=== PATIENT | male | born 1980 | race Caucasian/White ===

== ENCOUNTER 2021-08-28 00:13 | Emergency (ER) | payer BC ==
[2021-08-28] MEDS ORDERED: MORPHINE 4 MG/ML SYR ONE (00:57)
[2021-08-28] MEDS ORDERED: ONDANSETRON 4 MG/2 ML VIAL ONE (00:57)
[2021-08-28] MEDS ORDERED: NA CHLORIDE 0.9% 1,000 ML ONE ×2 (00:58→04:48)
[2021-08-28 01:29] LABS: Urine Blood Trace-intact (Negative); Urine Glucose 2+ (Negative); Urine Protein 2+ (Negative)
[2021-08-28 01:33] LABS: Protime INR 0.95
[2021-08-28 01:41] LABS: Absolute Lymphocytes (CBC) 3.6 K/uL (0.7-4.9); Basophils % 0.5 % (0-1.3); Lymphocytes % 24.5 % (15.3-44.8); MPV 8.3 fL (7.6-11.3); RBC Red Blood Cell Count 5.19 M/uL (4.33-5.43)
[2021-08-28 01:59] LABS: Barbiturates NEGATIVE (NEGATIVE); Benzodiazepines NEGATIVE (NEGATIVE); Cocaine NEGATIVE (NEGATIVE); METHAMPHETAM NEGATIVE (NEGATIVE); Methadone NEGATIVE (NEGATIVE); Opiates POSITIVE (NEGATIVE); Phencyclidine NEGATIVE (NEGATIVE); THC Cannibis POSITIVE (NEGATIVE)
[2021-08-28 02:30] LABS: ALT/SGPT 29 U/L (12-78); AST/SGOT 15 U/L (15-37); Albumin 3.6 g/dL (3.4-5.0); Alkaline Phosphatase 60 U/L (45-117); BUN Blood Urea Nitrogen 18 mg/dL (7-18); Bicarbonate 25 mmol/L (21-32); Bilirubin Direct < 0.1 mg/dL (0-0.2); Bilirubin Total 0.2 mg/dL (0.2-1.0); Glucose Level 282 mg/dL (74-106); Magnesium 2.2 mg/dL (1.8-2.4); NT PRO-BNP 113 pg/mL (<125); Potassium 4.2 mmol/L (3.5-5.1); Protein, Total 7.3 g/dL (6.4-8.2); Sodium Level 140 mmol/L (136-145); Troponin (Emerg Dept Use Only) < 0.02 ng/mL (0.0-0.045)
[2021-08-28] MEDS ORDERED: HYDROMORPHONE HCL 1 MG/ML INJ ONE (04:48)
--- NOTE | 2021-08-28 05:16 | EDPHYS ---
Physician Documentation [facility] Name: Dell Magaña Age: 41 yrs Sex: Male : 1980 Arrival Date: 08/28/2021 Time: 00:22 Bed 5 Private MD: ED Physician Kev Mohr HPI: 08/28 00:35 This 41 yrs old Male presents to ER via EMS with complaints of Syncope. mh7 00:35 The patient has experienced syncope, collapsed. Onset: The symptoms/episode mh7 began/occurred just prior to arrival, today. Duration: This was a single episode, that lasted an unknown period of time. Context: the episode(s) was witnessed, by family, occurred at home, occurred while the patient was sitting, Just prior to the episode the patient experienced headache, nausea, vomiting. Associated injury: The patient did not suffer any apparent associated injury. Associated signs and symptoms: Pertinent negatives: abdominal pain, agitation, ataxia, blurred vision, chest pain, combativeness, confusion, diaphoresis, diarrhea, dizziness, lightheadedness, numbness, palpitations, seizure, shortness of breath, tingling, vertigo, weakness. Current symptoms: headache, that is moderate. Historical: - Allergies: 00:34 GABAPENTIN; tw5 - Home Meds: 00:34 hydrocodone-acetaminophen 10-325 mg oral tab [Active]; tw5 - PMHx: 00:34 diabetes mellitus; tw5 - PSHx: 00:34 laminectomy; tw5 - Immunization history:: Client reports having NOT received the Covid vaccine. - Social history:: Smoking status: Patient reports the use of cigarette tobacco products, smokes two packs cigarettes per day. Patient uses street drugs, marijuana. ROS: 00:35 Constitutional: Negative for fever, chills, and weight loss, Eyes: Negative for injury, mh7 pain, redness, and discharge, ENT: Negative for injury, pain, and discharge, Neck: Negative for injury, pain, and swelling, Cardiovascular: Negative for chest pain, palpitations, and edema, Respiratory: Negative for shortness of breath, cough, wheezing, and pleuritic chest pain, Back: Negative for injury and pain, : Negative for injury, bleeding, discharge, and swelling, MS/Extremity: Negative for injury and deformity, Skin: Negative for injury, rash, and discoloration, Psych: Negative for depression, anxiety, suicide ideation, homicidal ideation, and hallucinations, Allergy/Immunology: Negative for hives, rash, and allergies, Endocrine: Negative for neck swelling, polydipsia, polyuria, polyphagia, and marked weight changes, Hematologic/Lymphatic: Negative for swollen nodes, abnormal bleeding, and unusual bruising. Exam: 00:35 Eyes: Pupils equal round and reactive to light, extra-ocular motions intact. Lids and mh7 lashes normal. Conjunctiva and sclera are non-icteric and not injected. Cornea within normal limits. Periorbital areas with no swelling, redness, or edema. Neck: Trachea midline, no thyromegaly or masses palpated, and no cervical lymphadenopathy. Supple, full range of motion without nuchal rigidity, or vertebral point tenderness. No Meningismus. Chest/axilla: Normal chest wall appearance and motion. Nontender with no deformity. No lesions are appreciated. 00:35 Respiratory: Lungs have equal breath sounds bilaterally, clear to auscultation and percussion. No rales, rhonchi or wheezes noted. No increased work of breathing, no retractions or nasal flaring. Abdomen/GI: Soft, non-tender, with normal bowel sounds. No distension or tympany. No guarding or rebound. No evidence of tenderness throughout. Back: No spinal tenderness. No costovertebral tenderness. Full range of motion. Skin: Warm, dry with normal turgor. Normal color with no rashes, no lesions, and no evidence of cellulitis. MS/ Extremity: Pulses equal, no cyanosis. Neurovascular intact. Full, normal range of motion. 00:35 Psych: Awake, alert, with orientation to person, place and time. Behavior, mood, and affect are within normal limits. 00:35 Constitutional: The patient appears in no acute distress, alert, awake, uncomfortable. 00:35 Head/face: Noted is tenderness, that is moderate, of the Posterior scalp. 00:35 Cardiovascular: Rate: bradycardic, Rhythm: regular, Pulses: no pulse deficits are appreciated, Heart sounds: normal, normal S1and S2, Edema: is not appreciated, JVD: is not appreciated. 00:35 Neuro: Orientation: is normal, Mentation: is normal, Memory: is normal, Cranial nerves: grossly normal, Cerebellar function: is grossly normal, Motor: is normal, Sensation: is normal, Gait: not tested. seizure activity, is not displayed by the patient, Abnormal movements: there are no abnormal movements. Vital Signs: 00:22 BP 159 / 87; Pulse 50; Resp 18 S; Pulse Ox 99% on R/A; cc4 00:23 BP 159 / 87; Pulse 47; Resp 12; Temp 98.5; Pulse Ox 100% on R/A; Weight 86.18 kg; tw5 Height 5 ft. 8 in. (172.72 cm); Pain 10/10; 00:30 BP 156 / 90; Pulse 69; Resp 20 S; Pulse Ox 99% on R/A; cc4 01:08 BP 157 / 77; Pulse 47; Resp 14; Pulse Ox 99% on R/A; Pain 10/10; tw5 01:45 BP 131 / 70; Pulse 48; Resp 20 S; Pulse Ox 99% on R/A; cc4 02:16 BP 135 / 68; Pulse 70; Resp 18; Pulse Ox 100% on R/A; Pain 8/10; tw5 02:17 Pain 8/10; tw5 05:30 BP 169 / 83; Pulse 47; Resp 18 S; Temp 98.1; Pulse Ox 99% on R/A; cc4 00:23 Body Mass Index 28.89 (86.18 kg, 172.72 cm) tw5 MDM: 05:10 Differential Diagnosis: cardiac arrhythmia, cerebrovascular accident, drug effect, mh7 emotional response, idiopathic syncope, pseudo seizure, seizure, transient ischemic attack, vasovagal episode. Data reviewed: vital signs, nurses notes, EMS record, old medical records, lab test result(s), cardiac enzymes, CBC, drug level(s), electrolytes, urinalysis, urine drug screen. Data interpreted: Pulse oximetry: on room air is 100 %. Interpretation: normal. Counseling: I had a detailed discussion with the patient and/or guardian regarding: the historical points, exam findings, and any diagnostic results supporting the discharge/admit diagnosis, the presence of at least one elevated blood pressure reading (>120/80) during this emergency department visit, lab results, radiology results, to return to the emergency department if symptoms worsen or persist or if there are any questions or concerns that arise at home. Response to treatment: the patient's symptoms have resolved after treatment, the patient's blood pressure is in an acceptable range, mental status has returned to baseline, the patient no longer shows bradycardia, the patient is not short of breath, the patient is not tachycardic, the patient's pain is gone, the patient's temperature has normalized, the patient is now symptom free, patient is well hydrated. Refusal of service: The patient/guardian displays adequate decision making capability and despite a detailed discussion of alternatives, benefits, risks, and consequences refuses: Admission to the hospital for further work-up and treatment, Lumbar Puncture procedure. ED course: Well-appearing, no acute distress, vital signs stable, no focal neurological deficit. No headache, nausea, vomiting, dizziness, chest pain, shortness of breath, or other complaints. Patient family are at bedside was with him at home this morning states that he may have passed out for 1 to 2 seconds at most. Discussed all test results and findings with the patient and discussed possible admission. Patient declined admission and wants to go home. He states he will follow-up with his doctors. Advised patient return to ED if worsening of symptoms or other urgent concerns.. 05:15 Patient medically screened. [facility] 05:17 ED course: Additionally patient reports that he coughed hard then felt the headache.. [facility] 08/28 00:31 Order name: Basic Metabolic Panel [facility] 08/28 00:31 Order name: CBC with Diff; Complete Time: 01:52 [facility] 08/28 00:31 Order name: LFT's; Complete Time: 02:34 [facility] 08/28 00:31 Order name: Magnesium; Complete Time: 02:34 [facility] 08/28 00:31 Order name: NT PRO-BNP; Complete Time: 02:34 [facility] 08/28 00:31 Order name: PT-INR; Complete Time: 01:38 [facility] 08/28 00:31 Order name: Troponin (emerg Dept Use Only); Complete Time: 02:34 [facility] 08/28 00:31 Order name: UDS; Complete Time: 02:08 [facility] 08/28 00:31 Order name: ETOH Level; Complete Time: 01:52 [facility] 08/28 00:32 Order name: Basic Metabolic Panel; Complete Time: 02:34 [facility] [place] 08/28 01:27 Order name: SARS-COV-2 RT PCR; Complete Time: 02:34 [facility] 08/28 01:28 Order name: Urine Dipstick-Ancillary; Complete Time: 01:38 [facility] [place] 08/28 03:33 Order name: Troponin (emerg Dept Use Only) [facility] 08/28 00:31 Order name: XRAY Chest (1 view) [facility] 08/28 00:31 Order name: EKG; Complete Time: 00:32 [facility] 08/28 00:31 Order name: Cardiac monitoring; Complete Time: 00:32 [facility] 08/28 00:31 Order name: EKG - Nurse/Tech; Complete Time: 00:32 [facility] 08/28 00:31 Order name: IV Saline Lock; Complete Time: 00:33 [facility] 08/28 00:31 Order name: Labs collected and sent; Complete Time: 00:33 [facility] 08/28 00:31 Order name: O2 Per Protocol; Complete Time: 00:33 [facility] 08/28 00:31 Order name: O2 Sat Monitoring; Complete Time: 00:33 [facility] 08/28 00:31 Order name: CT Head Brain wo Cont [facility] 08/28 03:02 Order name: CT Head Angio [facility] 08/28 05:27 Order name: Glucose, Ancillary Testing [facility] 08/28 00:31 Order name: Urine Dipstick-Ancillary (obtain specimen); Complete Time: 01:11 7 Administered Medications: 01:11 Drug: NS 0.9% 1000 ml Route: IV; Rate: 1000 ml; Site: right antecubital; tw5 02:00 Follow up: IV Status: Completed infusion; IV Intake: 1000ml cc4 02:17 Follow up: Response: No adverse reaction; IV Status: Completed infusion tw5 01:14 Drug: morphine 4 mg Route: IVP; Site: right antecubital; tw5 01:30 Follow up: Response: No adverse reaction; Pain is decreased cc4 02:17 Follow up: Pain 8/10 Adult; Response: No adverse reaction; Pain is decreased; RASS: tw5 Drowsy (-1) 01:14 Drug: Zofran (Ondansetron) 4 mg Route: IVP; Site: right antecubital; tw5 02:17 Follow up: Response: No adverse reaction tw5 04:55 Drug: NS 0.9% 1000 ml Route: IV; Rate: 1000 ml; Site: right antecubital; cc4 05:30 Follow up: IV Status: Completed infusion; IV Intake: 1000ml cc4 04:55 Drug: Dilaudid (HYDROmorphone) 1 mg Route: IVP; Site: right antecubital; cc4 05:13 Follow up: Response: No adverse reaction; Pain is decreased cc4 Point of Care Testing: Blood Glucose: 05:13 Blood Glucose: 237 mg/dL; cc4 Ranges: Critical Glucose Levels:Adult <50 mg/dl or >400 mg/dl <40 mg/dl or >180 mg/dl Disposition Summary: 08/28/21 05:15 Discharge Ordered Location: Home [facility] Problem: new [facility] Symptoms: have improved [facility] Condition: Stable [facility] Diagnosis - Headache [facility] - Syncope [facility] - Type 2 diabetes mellitus with hyperglycemia [facility] Followup: [facility] - With: Private Physician - When: 1 - 2 days - Reason: Worsening of condition, Recheck today's complaints, Continuance of care, Re-evaluation by your physician Followup: [facility] - With: Nathan Enriquez MD - When: 1 - 2 days - Reason: Worsening of condition, Recheck today's complaints Followup: [facility] - With: Ash Fuentes MD - When: 1 - 2 days - Reason: Worsening of condition, Recheck today's complaints Discharge Instructions: - Discharge Summary Sheet [facility] - General Headache Without Cause 7 - Syncope, [id number] [facility] - Diabetes Mellitus and Nutrition, Adult [facility] - Hyperglycemia, [id number] [facility] Forms: - Medication Reconciliation Form [facility] - Thank You Letter [facility] - Antibiotic Education [facility] - Prescription Opioid Use [facility] Prescriptions: - Metformin 500 mg Oral Tablet - take 1 tablet by ORAL route 2 times per day . Then take 1 tablet with morning [facility] meals AND evening meals; 30 tablet; Refills: 0, Product Selection Permitted Signatures: Dispatcher [employer] Kev Sanderson MD MD [facility] Roselia Milian RN RN cc4 Adelaide Beauchamp 5 Corrections: (The following items were deleted from the chart) 01:27 00:33 CORONAVIRUS+ ordered. EDMS EDMS
--- NOTE | 2021-08-28 05:16 | ER ---
Nurse's Notes [facility] Name: Dell Magaña Age: 41 yrs Sex: Male : 1980 Arrival Date: 08/28/2021 Time: 00:22 Bed 5 Private MD: Diagnosis: Headache;Syncope;Type 2 diabetes mellitus with hyperglycemia Presentation: 08/28 00:23 Chief complaint: EMS states: He states he is having the worst headache of his life, and tw5 he passed out while sitting in his chair. He is also bradycardic and is blood sugar was 236. Coronavirus screen: Vaccine status: Patient reports being unvaccinated. Ebola Screen: Patient negative for fever greater than or equal to 101.5 degrees Fahrenheit, and additional compatible Ebola Virus Disease symptoms Patient denies exposure to infectious person. Patient denies travel to an Ebola-affected area in the 21 days before illness onset. Initial Sepsis Screen: Does the patient meet any 2 criteria? No. Patient's initial sepsis screen is negative. Does the patient have a suspected source of infection? No. Patient's initial sepsis screen is negative. Risk Assessment: Do you want to hurt yourself or someone else? Patient reports no desire to harm self or others. Onset of symptoms was August 27, 2021 at 22:00. 00:23 Method Of Arrival: EMS: [facility] tw5 00:23 Acuity: SANGEETA 2 tw5 Triage Assessment: 00:35 General: Appears uncomfortable, Behavior is cooperative, restless. Neuro: Reports tw5 photophobia a syncopal episode weakness. Historical: - Allergies: 00:34 GABAPENTIN; tw5 - Home Meds: 00:34 hydrocodone-acetaminophen 10-325 mg oral tab [Active]; tw5 - PMHx: 00:34 diabetes mellitus; tw5 - PSHx: 00:34 laminectomy; tw5 - Immunization history:: Client reports having NOT received the Covid vaccine. - Social history:: Smoking status: Patient reports the use of cigarette tobacco products, smokes two packs cigarettes per day. Patient uses street drugs, marijuana. Screenin:33 Abuse screen: Denies threats or abuse. Denies injuries from another. Nutritional tw5 screening: No deficits noted. Tuberculosis screening: Fall Risk No fall in past 12 months (0 pts). Secondary diagnosis (15 points) IV access (20 points). Ambulatory Aid- None/Bed Rest/Nurse Assist (0 pts). Gait- Weak (10 pts.). Mental Status-. Assessment: 00:34 Pain: Complains of pain in Headache Pain currently is 10 out of 10 on a pain scale. tw5 Neuro: Level of Consciousness is awake, alert, obeys commands, Oriented to person, place, time, situation. Cardiovascular: Rhythm is sinus bradycardia. 01:00 Reassessment: Patient appears in no apparent distress at this time. Playful; medicated cc4 as ordered; voices no complaints. 01:08 General: Reports " It feels like I have an ice pike going through my head and into my tw5 back". Pain: Noted to be grimacing, moaning. Respiratory: Airway is patent Trachea midline Respiratory effort is even, unlabored. : Urine is clear. 02:16 General: Patient was seen sleeping peacefully. Upon arousal patient states that his tw5 pain is 8/10. 04:55 Reassessment: Patient appears in no apparent distress at this time. Reports headache cc4 has decreased to 7/10 on pain scale Patient states feeling better. NS 1000 ml hung to right AC saline lock with Dilaudid 1 mg given slow IVP; sinus bradycardia with no ventricular ectopy noted; remains \\T\\ beside.. 05:13 Reassessment: Accucheck glucose 237 mg/dl with Dr. Mohr notified \\T\\ states, "He wants cc4 to go home". Vital Signs: 00:22 BP 159 / 87; Pulse 50; Resp 18 S; Pulse Ox 99% on R/A; cc4 00:23 BP 159 / 87; Pulse 47; Resp 12; Temp 98.5; Pulse Ox 100% on R/A; Weight 86.18 kg; tw5 Height 5 ft. 8 in. (172.72 cm); Pain 10/10; 00:30 BP 156 / 90; Pulse 69; Resp 20 S; Pulse Ox 99% on R/A; cc4 01:08 BP 157 / 77; Pulse 47; Resp 14; Pulse Ox 99% on R/A; Pain 10/10; tw5 01:45 BP 131 / 70; Pulse 48; Resp 20 S; Pulse Ox 99% on R/A; cc4 02:16 BP 135 / 68; Pulse 70; Resp 18; Pulse Ox 100% on R/A; Pain 8/10; tw5 02:17 Pain 8/10; tw5 05:30 BP 169 / 83; Pulse 47; Resp 18 S; Temp 98.1; Pulse Ox 99% on R/A; cc4 00:23 Body Mass Index 28.89 (86.18 kg, 172.72 cm) tw5 ED Course: 00:22 Patient arrived in ED. tw5 00:24 Kev Mohr MD is Attending Physician. mh7 00:28 Triage completed. tw5 00:31 Roselia Milian, RN is Primary Nurse. cc4 00:33 Initial lab(s) drawn, by me, sent to lab. EKG done, by ED staff, reviewed by Roselia Milian RN. Inserted saline lock: 20 gauge in right antecubital area, using aseptic technique. Blood collected. 00:33 Patient has correct armband on for positive identification. Placed in gown. Bed in low tw5 position. Call light in reach. Side rails up X 1. front desk monitor on. Pulse ox on. NIBP on. Door closed. Noise minimized. Moved to private room. Pillow given. Verbal reassurance given. Assisted with urinal. 00:[address] tw5 00:49 XRAY Chest (1 view) In Process Unspecified. EDMS 00:50 CT Head Brain wo Cont In Process Unspecified. EDMS 01:08 Urine collected: COVID swab sent to lab. tw5 01:11 ETOH Level Sent. tw5 01:11 UDS Sent. tw5 01:11 Basic Metabolic Panel Sent. tw5 01:11 Basic Metabolic Panel Sent. tw5 01:11 CBC with Diff Sent. tw5 01:11 LFT's Sent. tw5 01:12 Magnesium Sent. tw5 01:12 NT PRO-BNP Sent. tw5 01:12 PT-INR Sent. tw5 01:12 Troponin (emerg Dept Use Only) Sent. tw 02:04 SARS-COV-2 RT PCR Sent. tw 02:04 LFT's Sent. tw 02:04 Magnesium Sent. tw 02:04 NT PRO-BNP Sent. tw 02:04 Troponin (emerg Dept Use Only) Sent. tw5 03:[address] tw5 03:44 CT Head Angio In Process Unspecified. EDMS 05:14 Nathan Enriquez MD is Referral Physician. mh7 05:14 Ash Fuentes MD is Referral Physician. 7 05:30 No provider procedures requiring assistance completed. cc4 05:30 IV discontinued, intact, bleeding controlled, No redness/swelling at site. Pressure cc4 dressing applied. 05:30 EKG completed in triage. Results shown to MD. EKG done per protocol. Labs ordered per cc4 protocol. Drawn by ED staff. 07:24 Arm band placed on right wrist. cc4 Administered Medications: 01:11 Drug: NS 0.9% 1000 ml Route: IV; Rate: 1000 ml; Site: right antecubital; tw5 02:00 Follow up: IV Status: Completed infusion; IV Intake: 1000ml cc4 02:17 Follow up: Response: No adverse reaction; IV Status: Completed infusion tw5 01:14 Drug: morphine 4 mg Route: IVP; Site: right antecubital; tw5 01:30 Follow up: Response: No adverse reaction; Pain is decreased cc4 02:17 Follow up: Pain 8/10 Adult; Response: No adverse reaction; Pain is decreased; RASS: tw5 Drowsy (-1) 01:14 Drug: Zofran (Ondansetron) 4 mg Route: IVP; Site: right antecubital; tw5 02:17 Follow up: Response: No adverse reaction tw5 04:55 Drug: NS 0.9% 1000 ml Route: IV; Rate: 1000 ml; Site: right antecubital; cc4 05:30 Follow up: IV Status: Completed infusion; IV Intake: 1000ml cc4 04:55 Drug: Dilaudid (HYDROmorphone) 1 mg Route: IVP; Site: right antecubital; cc4 05:13 Follow up: Response: No adverse reaction; Pain is decreased cc4 Point of Care Testing: Blood Glucose: 05:13 Blood Glucose: 237 mg/dL; cc4 Ranges: Intake: 02:00 IV: 1000ml; Total: 1000ml. cc4 05:30 IV: 1000ml; Total: 2000ml. cc4 Outcome: 05:15 Discharge ordered by . 7 05:30 Discharged to home cc4 05:30 Condition: improved 05:30 Discharge instructions given to patient, Instructed on discharge instructions, follow up and referral plans. medication usage, Demonstrated understanding of instructions, follow-up care, medications. 06:27 Patient left the ED. lp1 Signatures: Dispatcher [employer] EDMS Nancy Dupree RN RN lp1 Kev Mohr MD MD 7 Roselia Milian RN RN cc4 Adelaide Beauchamp 5 Corrections: (The following items were deleted from the chart) 01:27 01:11 CORONAVIRUS+MR.LAB.BRZ drawn and sent. tw5 [facility]
[2021-08-28 06:35] VITALS: TEMP 98.5
[2021-08-28 06:42] VITALS: BP 135/68; O2SAT 100
--- NOTE | 2021-08-28 10:07 | RAD REPORT ---
EXAM DESCRIPTION: RAD - Chest Single View - 08/28/2021 12:49 am CLINICAL HISTORY: syncope COMPARISON: September 2015 TECHNIQUE: AP portable chest image was obtained 08/28/2021 12:49 am . FINDINGS: Lungs are clear. Heart and vasculature are normal. No measurable pleural effusion and no p neumothorax. No acute bony abnormality seen. No acute aortic findings suspected. IMPRESSION: No acute cardiopulmonary process. No significant change from comparison study.
--- NOTE | 2021-08-28 14:00 | RAD REPORT ---
EXAM DESCRIPTION: CT - Head Brain Wo Cont - 08/28/2021 6:41 am Head Brain Wo Cont CLINICAL HISTORY: 41 years Male Syncope;Headache COMPARISON: None TECHNIQUE: Contiguous axial images of the brain were obtained without the administration of intraven ous contrast.This exam was performed according to our departmental dose-optimization program which in cludes use of Automated Exposure Control, adjustment of the mA and/or kV according to patient size an d/or use of iterative reconstruction technique. DLP: 827 mGy*cm FINDINGS: Brain: No acute intracranial hemorrhage. No extra-axial collection. No mass effect or светлана iation. Ventricles: Within normal limits in size. Globes and orbits: No acute abnormality. Bones: No acute osseous finding Paranasal sinuses: Paranasal sinuses are clear. Mastoid air cells: Well pneumatized. Soft tissues: Within normal limits IMPRESSION: No acute intracranial abnormality. Electronically signed by: Jay Shelley DO 08/28/2021 12:58 AM CHILD PSYCHIATRIST Due to temporary technical issues with the PACS/Fluency reporting system, reports are being signed by the in house radiologist without review as a courtesy to ensure prompt reporting. The interpreting r adiologist is fully responsible for the content of the report.
--- NOTE | 2021-08-28 14:28 | RAD REPORT ---
EXAM DESCRIPTION: CT - Head angio - 08/28/2021 6:41 am COMPARISON: CT head 08/28/2021 CLINICAL HISTORY: [facility] MAIN HEADACHE TECHNIQUE: CTA of the [place] was performed after bolus administration of IV contrast. Mult iplanar reformats were performed. MIPS reformats are provided. Automated exposure control was utilize d on this examination as a dose lowering technique. FINDINGS: Anterior circulation: The visualized portions of the internal carotid arteries demonstra te atherosclerosis without significant stenosis. Both anterior and middle cerebral arteries show no s ignificant stenosis. No anterior circulation aneurysms. Posterior circulation: The visualized distal vertebral arteries are patent to the vertebrobasilar j unction. The basilar artery and both posterior cerebral arteries are patent. No posterior circulation aneurysms. Visualized dural venous sinuses: Patent. Other findings: The visualized brain parenchyma is unremarkable. Visualized portions of the orbits, mastoids, and skull base are unremarkable. There is complete opacification of the left maxillary sin us. IMPRESSION: 1. No acute intracranial vascular findings. 2. Severe chronic left maxillary sinusitis. Electronically signed by: Geovany Tapia MD 08/28/2021 4:22 AM FILTER MACHINE OPERATOR Due to temporary technical issues with the PACS/Fluency reporting system, reports are being signed by the in house radiologist without review as a courtesy to ensure prompt reporting. The interpreting r adiologist is fully responsible for the content of the report.
== END 2021-08-28 06:27 | disposition home or self-care (01) ==
LOC: ER 00:13
DX: E11.65 Type 2 diabetes mellitus with hyperglycemia (principal); R51.9 Headache, unspecified; Z20.822 Contact with and (suspected) exposure to COVID-19; F17.210 Nicotine dependence, cigarettes, uncomplicated
CPT/HCPCS: 96361; 93005; 85025; 80048; 36415; 80320; 83735; 85610; 82947; 80076; 81003; 84484 ×2; 83880; 80307; 70450; 70496; 71045; 96375; 96374; 99285; U0003; Q9967; J1170; J7030 ×2; J2405

== ENCOUNTER 2022-01-26 20:01 | Emergency (ER) | payer BC ==
[2022-01-26] MEDS ORDERED: LORazepam 2 MG/ML VIAL ONE (20:07)
[2022-01-26 20:22] LABS: Absolute Lymphocytes (CBC) 3.3 K/uL (0.7-4.9); Hematocrit 48.7 % (39.6-49.0); Lymphocytes % 22.7 % (15.3-44.8); MPV 7.4 fL (7.6-11.3); RBC Red Blood Cell Count 5.46 M/uL (4.33-5.43)
[2022-01-26 20:34] LABS: Protime INR 1.03
[2022-01-26 20:40] LABS: Urine Blood Negative (Negative); Urine Glucose Negative (Negative); Urine Protein Negative (Negative); Urine Specific Gravity 1.025 (1.005-1.030)
[2022-01-26 20:45] LABS: ALT/SGPT 31 U/L (12-78); AST/SGOT 17 U/L (15-37); Albumin 4.4 g/dL (3.4-5.0); Alkaline Phosphatase 71 U/L (45-117); BUN Blood Urea Nitrogen 19 mg/dL (7-18); Bicarbonate 28 mmol/L (21-32); Bilirubin Total 0.4 mg/dL (0.2-1.0); Glucose Level 144 mg/dL (74-106); Potassium 3.9 mmol/L (3.5-5.1); Protein, Total 8.3 g/dL (6.4-8.2); Sodium Level 136 mmol/L (136-145)
[2022-01-26] MEDS ORDERED: NA CHLORIDE 0.9% 1,000 ML ONE (20:45)
[2022-01-26 20:49] LABS: Bilirubin Direct < 0.1 mg/dL (0-0.2)
[2022-01-26 21:02] LABS: Barbiturates NEGATIVE (NEGATIVE); Benzodiazepines NEGATIVE (NEGATIVE); Cocaine NEGATIVE (NEGATIVE); METHAMPHETAM NEGATIVE (NEGATIVE); Methadone NEGATIVE (NEGATIVE); Opiates NEGATIVE (NEGATIVE); Phencyclidine NEGATIVE (NEGATIVE); THC Cannibis NEGATIVE (NEGATIVE)
--- NOTE | 2022-01-26 21:07 | RAD REPORT ---
EXAM DESCRIPTION: CT - Head Brain Wo Cont - 01/26/2022 8:46 pm CLINICAL HISTORY: seizure COMPARISON: 2020 TECHNIQUE: Computed axial tomography of the head was obtained. IV contrast was not requested. All CT scans are performed using dose optimization technique as appropriate and may include automated exposure control or mA/KV adjustment according to patient size. FINDINGS: An intracranial bleed is not seen . The ventricles are normal in caliber. No significant hypodense areas within the brain visualized No extra-axial fluid collection is noted. Opacification left maxillary sinus presumably sinusitis. IMPRESSION: No acute intracranial abnormality is seen. If patient's symptoms persist MRI of the bra in would be recommended.
[2022-01-26] MEDS ORDERED: LEVETIRACETAM 500 MG/5 ML VIAL IV ONE (23:37)
[2022-01-26] MEDS ORDERED: NA CHLORIDE 0.9% 100 ML IV ONE (23:41)
--- NOTE | 2022-01-27 00:02 | EDPHYS ---
Physician Documentation [facility] Name: Dell Magaña Age: 41 yrs Sex: Male : 1980 Arrival Date: 01/26/2022 Time: 20:07 Bed 3 Private MD: ED Physician Kev Mohr HPI: 01/26 20:15 This 41 yrs old Male presents to ER via Wheelchair with complaints of Seizure. cp 20:15 The patient presents with a history of multiple seizures, an unknown number, the cp episode(s) was witnessed, by a significant other. 20:15 Character of seizure(s): Motor activity: generalized, shaking all over, Incontinence: cp none. Seizure onset: today. 20:15 Seizure Hx: Cause: unknown, Seizure medications: Keppra. Associated injury: The patient cp did not suffer any apparent associated injury. Significant other reports patient recently diagnosed with seizure disorder after having abnormal EEG. Neurologist is DR Ag who started patient on oral Keppra 500 mg bid 2 days ago. Significant other reports patient was shaking all over. Patient presents to ED shaking all over, responding appropriately to questioning. Historical: - Allergies: 20:23 GABAPENTIN; vc1 - Home Meds: 20:23 suboxine [Active]; Keppra 500 mg Oral tab 1 tab 2 times per day [Active]; vc1 - PMHx: 20:23 diabetes mellitus; Seizure; vc1 - PSHx: 20:23 laminectomy; vc1 - Immunization history:: Adult Immunizations up to date, Client reports having NOT received the Covid vaccine. Flu vaccine is not up to date. - Social history:: Smoking status: Patient reports the use of cigarette tobacco products, smokes two packs cigarettes per day. Patient/guardian denies using alcohol, the patient reports quitting approximately 8 years ago. ROS: 20:20 Constitutional: Negative for fever, poor PO intake. cp 20:20 Eyes: Negative for injury, pain, redness, and discharge. cp 20:20 ENT: Negative for drainage from ear(s), ear pain, sore throat, difficulty swallowing, difficulty handling secretions. 20:20 Cardiovascular: Negative for chest pain, edema, palpitations. 20:20 Respiratory: Negative for cough, shortness of breath, wheezing. 20:20 Abdomen/GI: Negative for abdominal pain, nausea, vomiting, and diarrhea. 20:20 Neuro: Positive for convulsions, Negative for altered mental status, loss of consciousness. 20:20 All other systems are negative. Exam: 20:30 Constitutional: The patient appears in no acute distress, alert, awake, cp non-diaphoretic, non-toxic, well developed, well nourished. 20:30 Head/Face: Normocephalic, atraumatic. cp 20:30 Eyes: Periorbital structures: appear normal, Pupils: equal, round, and reactive to light and accomodation, Conjunctiva: normal, no exudate, no injection, Sclera: no appreciated abnormality, Lids and lashes: appear normal, bilaterally. 20:30 ENT: External ear(s): are unremarkable, Ear canal(s): are normal, clear, TM's: dullness, bilaterally, Nose: is normal, Mouth: Lips: moist, Oral mucosa: pink and intact, moist, Posterior pharynx: Airway: no evidence of obstruction, patent. 20:30 Neck: ROM/movement: is normal, is supple, without pain, no range of motions limitations, no meningismus, no nuchal rigidity. 20:30 Chest/axilla: Inspection: normal, Palpation: is normal, no crepitus, no tenderness. 20:30 Cardiovascular: Rate: normal, Rhythm: regular, Edema: is not appreciated, JVD: is not appreciated. 20:30 Respiratory: the patient does not display signs of respiratory distress, Respirations: normal, no use of accessory muscles, no retractions, labored breathing, is not present, Breath sounds: are clear throughout, no decreased breath sounds, no stridor, no wheezing. 20:30 Abdomen/GI: Inspection: abdomen appears normal, Palpation: abdomen is soft and non-tender, in all quadrants, voluntary guarding, is not appreciated, involuntary guarding, is not appreciated. 20:30 Musculoskeletal/extremity: Extremities: all appear grossly normal, with no appreciated pain with palpation. 20:30 Neuro: Orientation: to person, place \T\ time. Mentation: able to follow commands, slow to respond, Motor: strength is normal, Abnormal movements: generalized convulsions. 20:35 ECG was reviewed by the Attending Physician. cp Vital Signs: 20:20 BP 133 / 82; Pulse 87; Resp 22; Temp 99(TE); Pulse Ox 97% on R/A; Weight 83.91 kg; vc1 Height 5 ft. 8 in. (172.72 cm); Pain 10/10; 21:00 BP 136 / 84; Pulse 88; Resp 24; Pulse Ox 96% on R/A; vc1 22:00 BP 138 / 88; Pulse 84; Resp 22; Pulse Ox 97% on R/A; vc1 23:00 BP 128 / 82; Pulse 86; Resp 23; Pulse Ox 98% on R/A; vc1 01/27 00:00 BP 124 / 84; Pulse 86; Resp 22; Pulse Ox 97% on R/A; vc1 01/26 20:20 Body Mass Index 28.13 (83.91 kg, 172.72 cm) vc1 MDM: 01/26 20:14 Patient medically screened. cp 22:55 Physician consultation: Jairo Ag MD was called at 22:55, was contacted at 22:55, regarding consult, patient's condition, reports patient with history of abnormal EEG concerning for seizure disorder. Wants Keppra increased to 750 mg bid and f/u in clinic. 01/27 00:00 Data reviewed: vital signs, nurses notes, lab test result(s), EKG, radiologic studies, cp CT scan. 00:00 Differential diagnosis: cerebral vascular accident, drug overdose, cardiac arrhythmia, cp seizure, anxiety. Test interpretation: by ED physician or midlevel provider: ECG. Counseling: I had a detailed discussion with the patient and/or guardian regarding: the historical points, exam findings, and any diagnostic results supporting the discharge/admit diagnosis, lab results, radiology results, the need for outpatient follow up, for definitive care, a neurologist, to return to the emergency department if symptoms worsen or persist or if there are any questions or concerns that arise at home. Response to treatment: the patient's symptoms have markedly improved after treatment, VSS. No seizure activity observed while monitoring patient in ED. Will discharge to home for continued monitoring. 01/26 20:09 Order name: Acetaminophen; Complete Time: 21:58 cp 01/26 20:09 Order name: Basic Metabolic Panel; Complete Time: 21:58 cp 01/26 21:58 Interpretation: Normal except: GLUC 144; BUN 19; GFR 75. cp 01/26 20:09 Order name: CBC with Diff; Complete Time: 21:58 cp 01/26 21:59 Interpretation: Normal except: WBC 14.6; RBC 5.46. cp 01/26 20:09 Order name: ETOH Level; Complete Time: 21:58 cp 01/26 20:09 Order name: Hepatic Function; Complete Time: 21:58 cp 01/26 20:09 Order name: PT-INR; Complete Time: 21:58 cp 01/26 20:09 Order name: Ptt, Activated; Complete Time: 21:58 cp 01/26 20:09 Order name: Salicylate; Complete Time: 21:58 cp 01/26 20:09 Order name: Urine Drug Screen; Complete Time: 21:58 cp 01/26 20:09 Order name: CT Head Brain wo Cont; Complete Time: :58 cp 01/26 20:18 Order name: Glucose, Ancillary Testing; Complete Time: 21:58 EDMS 01/26 20:40 Order name: Urine Dipstick-Ancillary; Complete Time: 21:58 EDMS 01/26 20:09 Order name: EKG; Complete Time: 20:09 cp 01/26 20:09 Order name: EKG - Nurse/Tech; Complete Time: 20:30 cp 01/26 20:09 Order name: IV Saline Lock; Complete Time: 20:10 cp 01/26 20:09 Order name: Labs collected and sent; Complete Time: 20:10 cp 01/26 20:09 Order name: Suicide Screening ([place]); Complete Time: 20:31 cp 01/26 20:09 Order name: Urine Dipstick-Ancillary (obtain specimen); Complete Time: 20:31 cp EC/29 20:35 Rate is 72 beats/min. Rhythm is regular. FL interval is normal. QRS interval is normal. cp QT interval is normal. T waves are Inverted in leads aVL, aVR. Interpreted by me. Reviewed by me. Administered Medications: 20:11 CANCELLED (Duplicate Order): Ativan (LORazepam) 1 mg IVP in right antecubital once vc1 20:11 Drug: Ativan (LORazepam) 1 mg Route: IVP; Site: right antecubital; vc1 01/27 03:39 Follow up: Response: No adverse reaction vc1 01/26 20:43 Drug: NS 0.9% 1000 ml Route: IV; Rate: 1 bolus; Site: right antecubital; 1 22:43 Follow up: IV Status: Completed infusion; IV Intake: 1000ml vc1 23:44 Drug: Keppra (levETIRAcetam) 1000 mg Route: IV; Rate: calculated rate; Site: right ag7 antecubital; 01/27 00:01 Follow up: IV Status: Completed infusion; IV Intake: 100ml ag7 Disposition: 07:11 Co-signature as Attending Physician, Kev Mohr MD. [facility] Disposition Summary: 01/27/22 00:01 Discharge Ordered Location: Home cp Problem: an acute exacerbation cp Symptoms: have improved cp Condition: Stable cp Diagnosis - Unspecified convulsions cp Followup: cp - With: Jairo Ag MD - When: 1 week - Reason: Recheck today's complaints Discharge Instructions: - Discharge Summary Sheet cp - Seizure, Adult cp Forms: - Medication Reconciliation Form cp - Thank You Letter cp - Antibiotic Education cp - Prescription Opioid Use cp Prescriptions: - Keppra 750 mg Oral Tablet - take 1 tablet by ORAL route every 12 hours; 30 tablet; Refills: 0, Product cp Selection Permitted Signatures: Dispatcher [employer] EDMS Nahum Garibay PA PA cp Kev Mohr MD MD 7 Ayanna George RN RN [facility] Charlette Diaz RN RN 7 Corrections: (The following items were deleted from the chart) 01/26 20:11 20:09 Ativan (LORazepam) 1 mg IVP in right antecubital once given. 1 1 20:11 20:11 Ativan (LORazepam) 1 mg IVP in right antecubital once ordered. 1 1 01/28 00:26 01/26 20:15 The patient presents with a history of multiple seizures, cp cp
--- NOTE | 2022-01-27 00:02 | ER ---
Nurse's Notes [facility] Name: Dell Magaña Age: 41 yrs Sex: Male : 1980 Arrival Date: 01/26/2022 Time: 20:07 Bed 3 Private MD: Diagnosis: Unspecified convulsions Presentation: 01/26 20:20 Chief complaint: Spouse and/or significant other states: "I called the doctor about vc1 4:30 fanta asked him if I should bring him in because he was still slurring his words and not making complete sentences. The Doctor called me back and said to bring him in.". Coronavirus screen: Vaccine status: Patient reports being unvaccinated. At this time, the client does not indicate any symptoms associated with coronavirus-19. Ebola Screen: No symptoms or risks identified at this time. Initial Sepsis Screen: Does the patient meet any 2 criteria? RR > 20 per min. No. Patient's initial sepsis screen is negative. Does the patient have a suspected source of infection? No. Patient's initial sepsis screen is negative. Risk Assessment: Do you want to hurt yourself or someone else? Patient reports no desire to harm self or others. Onset of symptoms is unknown. 20:20 Method Of Arrival: Wheelchair vc1 20:20 Acuity: SANGEETA 3 vc1 Triage Assessment: 20:23 General: Appears in no apparent distress. comfortable, Behavior is restless, Smells of vc1 cigarettes. Pain: Complains of pain in left ribcage Pain does not radiate. Pain currently is 10 out of 10 on a pain scale. Neuro: Level of Consciousness is awake, Oriented to person, place, time, situation, Appropriate for age Patient stuttering and slurring words during said "seizure activity". Seizure activity reported prior to arrival. reported by patient and . Neuro:. Neuro: Tremors noted to right hand. Cardiovascular: Capillary refill < 3 seconds Patient's skin is warm and dry. Cardiovascular:. Respiratory: Airway is patent Respiratory effort is even, unlabored, Respiratory pattern is regular, symmetrical. GI: No deficits noted. : No deficits noted. Derm: No deficits noted. Musculoskeletal:. Historical: - Allergies: 20:23 GABAPENTIN; vc1 - Home Meds: 20:23 suboxine [Active]; Keppra 500 mg Oral tab 1 tab 2 times per day [Active]; vc1 - PMHx: 20:23 diabetes mellitus; Seizure; vc1 - PSHx: 20:23 laminectomy; vc1 - Immunization history:: Adult Immunizations up to date, Client reports having NOT received the Covid vaccine. Flu vaccine is not up to date. - Social history:: Smoking status: Patient reports the use of cigarette tobacco products, smokes two packs cigarettes per day. Patient/guardian denies using alcohol, the patient reports quitting approximately 8 years ago. Screenin/30 00:36 Abuse screen: Denies threats or abuse. Nutritional screening: No deficits noted. ag7 Tuberculosis screening: No symptoms or risk factors identified. Fall Risk No fall in past 12 months (0 pts). Secondary diagnosis (15 points) seizures, IV access (20 points). Ambulatory Aid- None/Bed Rest/Nurse Assist (0 pts). Gait- Normal/Bed Rest/Wheelchair (0 pts) Mental Status- Oriented to own ability (0 pts). Total Fernandez Fall Scale indicates Low Risk Score (25-44 pts). Fall prevention measures have been instituted. Side Rails Up X 2 Placed close to Nursing Station Frequent Obs/Assesments occuring Family Present and informed to notify staff if they need to leave bedside As available Patient and Family Educated on Fall Prevention Program and strategies. Assessment: 01/26 20:30 Reassessment: See triage assessment. vc1 21:00 Reassessment: Patient and/or family updated on plan of care and expected duration. Pain vc1 level reassessed. Patient is alert, oriented x 3, equal unlabored respirations, skin warm/dry/pink. 22:00 Reassessment: Patient appears in no apparent distress at this time. Patient and/or vc1 family updated on plan of care and expected duration. Pain level reassessed. 23:00 Reassessment: Patient and/or family updated on plan of care and expected duration. Pain vc1 level reassessed. Patient is alert, oriented x 3, equal unlabored respirations, skin warm/dry/pink. Vital Signs: 20:20 BP 133 / 82; Pulse 87; Resp 22; Temp 99(TE); Pulse Ox 97% on R/A; Weight 83.91 kg; vc1 Height 5 ft. 8 in. (172.72 cm); Pain 10/10; 21:00 BP 136 / 84; Pulse 88; Resp 24; Pulse Ox 96% on R/A; vc1 22:00 BP 138 / 88; Pulse 84; Resp 22; Pulse Ox 97% on R/A; vc1 23:00 BP 128 / 82; Pulse 86; Resp 23; Pulse Ox 98% on R/A; vc1 01/27 00:00 BP 124 / 84; Pulse 86; Resp 22; Pulse Ox 97% on R/A; vc1 01/26 20:20 Body Mass Index 28.13 (83.91 kg, 172.72 cm) vc1 ED Course: 01/26 20:07 Patient arrived in ED. ll3 20:07 Nahum Garibay PA is PHCP. cp 20:07 Kev Mohr MD is Attending Physician. cp 20:10 Inserted saline lock: 20 gauge in right antecubital area, using aseptic technique. ds4 Blood collected. 20:19 Ayanna George, RN is Primary Nurse. vc1 20:23 Triage completed. vc1 20:29 Arm band placed on left wrist. EKG completed in triage. Results shown to MD. EKG done vc1 per protocol. Performed by ED Staff. 20:48 CT Head Brain wo Cont In Process Unspecified. EDMS 01/27 00:01 Jairo Ag MD is Referral Physician. cp 00:37 No provider procedures requiring assistance completed. ag7 00:37 IV discontinued, intact, bleeding controlled, No redness/swelling at site. Pressure ag7 dressing applied, Right AC 20 gauge. 00:37 Patient has correct armband on for positive identification. Bed in low position. Call ag7 light in reach. Side rails up X 1. Administered Medications: 01/26 20:11 CANCELLED (Duplicate Order): Ativan (LORazepam) 1 mg IVP in right antecubital once vc1 20:11 Drug: Ativan (LORazepam) 1 mg Route: IVP; Site: right antecubital; vc1 01/27 03:39 Follow up: Response: No adverse reaction vc1 01/26 20:43 Drug: NS 0.9% 1000 ml Route: IV; Rate: 1 bolus; Site: right antecubital; vc1 22:43 Follow up: IV Status: Completed infusion; IV Intake: 1000ml vc1 23:44 Drug: Keppra (levETIRAcetam) 1000 mg Route: IV; Rate: calculated rate; Site: right ag7 antecubital; 01/27 00:01 Follow up: IV Status: Completed infusion; IV Intake: 100ml ag7 Intake: 01/26 22:43 IV: 1000ml; Total: 1000ml. vc1 01/27 00:01 IV: 100ml; Total: 1100ml. ag7 Outcome: 00:01 Discharge ordered by . cp 00:37 Discharged to home ambulatory. ag7 00:37 Condition: stable 00:37 Discharge instructions given to patient, Instructed on discharge instructions, follow up and referral plans. medication usage, Demonstrated understanding of instructions, follow-up care, medications, Prescriptions given X 1. 00:43 Patient left the ED. la1 Signatures: Dispatcher [employer] EDMS Santiago Rose ds4 [place], KEY MAKER-C KEY MAKER-Cla1 Nahum Garibay PA PA cp Loubet, Lynsea, RN RN ll3 Ayanna George RN RN vc1 Charlette Diaz RN RN ag7 Corrections: (The following items were deleted from the chart) 01/26 20:11 20:09 Ativan (LORazepam) 1 mg IVP in right antecubital vc1 vc1 20:30 20:23 Pain: Complains of pain in right ribcage Pain does not radiate. Pain currently is vc1 10 out of 10 on a pain scale. vc1 01/27 03:38 03:37 Reassessment: See triage assessment vc1 vc1
[2022-01-27 01:46] VITALS: BP 133/82; TEMP 99; O2SAT 97
--- NOTE | 2022-01-27 09:45 | EKG ---
Test Date: 2022-01-26 Test Time: 20:30:13 Roll Forming Machine Set Up Mechanic: FLORIN MEASUREMENT RESULTS: Intervals: Rate: 72 AK: 138 QRSD: 90 QT: 358 QTc: 392 [place]: P: 68 AK: 138 QRS: 19 T: 74 INTERPRETIVE STATEMENTS: Normal sinus rhythm Normal ECG Compared to ECG 08/28/2021 00:26:37 Sinus bradycardia no longer present Left posterior fascicular block no longer present ST (T wave) deviation no longer present Electronically Signed On 01-27-22 09:43:41 CDT by Ash Fuentes
== END 2022-01-27 00:43 | disposition home or self-care (01) ==
LOC: ER 20:01
DX: R56.9 Unspecified convulsions (principal); E11.9 Type 2 diabetes mellitus without complications; F17.210 Nicotine dependence, cigarettes, uncomplicated; Z88.8 Allergy status to other drugs, medicaments and biological substances
CPT/HCPCS: 96365; 96361; 93005; 85025; 80048; 36415; 80320; 80329 ×2; 85610; 82947; 80076; 85730; 81003; 80307; 70450; 96375; 99284; J1953; J7030